=== PATIENT | female | born 1980 | race Asian ===

== ENCOUNTER 2017-02-25 12:00 | Inpatient (IN) | payer SELFPAY ==
[~2017-02-25] VITALS: Ht 167.6 cm; Wt 71.7 kg
[2017-02-25 12:11] LABS: BILIRUBIN,URINE NEGATIVE (NEGATIVE); BLOOD, URINE NEGATIVE (NEGATIVE); CLARITY/URINE HAZY (CLEAR); COLOR,URINE YELLOW (YELLOW); GLUCOSE,URINE NEGATIVE (NEGATIVE); KETONES,URINE NEGATIVE (NEGATIVE); LEUKOCYTE ESTERASE ,URINE 2+ (NEGATIVE); NITRITE, URINE NEGATIVE (NEGATIVE); PROTEIN URINE NEGATIVE (NEGATIVE); UROBILINOGEN,URINE 0.2 (0.2-1.0)
[2017-02-25 12:18] LABS: BASOPHILS % (AUTO) 0.2 % (0.0-2.0); EOSINOPHILS % (AUTO) 0.5 % (0.0-4.0); HEMATOCRIT 34.5 % (36-48); HEMOGLOBIN 11.3 g/dL (12.0-16.0); LYMPHOCYTES # (AUTO) 1.4 K/uL (1.0-5.5); LYMPHOCYTES % (AUTO) 15.8 % (20.5-51.5); MEAN CORPUSCULAR HEMOGLOBIN 29 pg (27-31); MEAN CORPUSCULAR HGB CONC 33 % (32-36); MEAN CORPUSCULAR VOLUME 87 fL (79.0-98.0); MONOCYTES # (AUTO) 0.6 K/uL (0.0-1.0); MONOCYTES % (AUTO) 6.8 % (1.7-9.3); NEUTROPHILS # (AUTO) 6.7 K/uL (1.8-7.7); NEUTROPHILS % (AUTO) 76.7 % (40.0-70.0); PLATELET COUNT (AUTO) 200 K/uL (130-430); RED BLOOD CELL COUNT(AUTO) 3.98 MIL/uL (4.2-6.2); RED CELL DISTRIBUTION WIDTH 13.4 % (9.0-15.0); WHITE BLOOD COUNT (AUTO) 8.7 K/uL (4.8-10.8)
[2017-02-25 12:21] LABS: BACTERIA,URINE MODERATE /HPF (None Seen); RBC,URINE 0-3 /HPF (0-3)
[2017-02-25 12:22] LABS: MUCUS,URINE None Seen /LPF (None Seen)
[2017-02-26] MEDS ORDERED: LR 1,000 ML IV ONE (11:27)
[2017-02-26] MEDS ORDERED: CITRIC ACID/SODIUM CITRATE 30 ML UDC PO ONE (11:30)
[2017-02-26] MEDS ORDERED: CEFAZOLIN 2 GM IVPB PREMIX 50 ML IV ONE ×2 (11:30→14:00)
[2017-02-26 12:01] LABS: BASOPHILS % (AUTO) 0.4 % (0.0-2.0); EOSINOPHILS % (AUTO) 0.4 % (0.0-4.0); HEMATOCRIT 33.2 % (36-48); HEMOGLOBIN 10.8 g/dL (12.0-16.0); LYMPHOCYTES # (AUTO) 1.5 K/uL (1.0-5.5); LYMPHOCYTES % (AUTO) 17.8 % (20.5-51.5); MEAN CORPUSCULAR HEMOGLOBIN 28 pg (27-31); MEAN CORPUSCULAR HGB CONC 33 % (32-36); MEAN CORPUSCULAR VOLUME 86 fL (79.0-98.0); MONOCYTES # (AUTO) 0.6 K/uL (0.0-1.0); MONOCYTES % (AUTO) 6.6 % (1.7-9.3); NEUTROPHILS # (AUTO) 6.3 K/uL (1.8-7.7); NEUTROPHILS % (AUTO) 74.8 % (40.0-70.0); PLATELET COUNT (AUTO) 199 K/uL (130-430); RED BLOOD CELL COUNT(AUTO) 3.86 MIL/uL (4.2-6.2); RED CELL DISTRIBUTION WIDTH 13.2 % (9.0-15.0); WHITE BLOOD COUNT (AUTO) 8.4 K/uL (4.8-10.8)
[2017-02-26] MEDS ORDERED: LR 1,000 ML IV SCH (13:52)
[2017-02-26] MEDS ORDERED: MORPHINE SULFATE 10MG/10ML PF AMP SP SCH (14:00)
[2017-02-26] MEDS ORDERED: ONDANSETRON HCL 4 MG/2 ML VIAL IVP PRN ×2 (14:00)
[2017-02-26] MEDS ORDERED: KETOROLAC TROMETHAMINE 30 MG VIAL IVP PRN ×2 (14:00)
[2017-02-26] MEDS ORDERED: HYDROmorphone 1 MG INJ. 1 MG/ML AMPUL IVP PRN ×2 (14:00)
[2017-02-26] MEDS ORDERED: MEPERIDINE HCL/PF 25 MG/ML DISP.SYRIN IVP PRN ×2 (14:00)
[2017-02-26] MEDS ORDERED: LR 1,000 ML IV.SOLN IV ONE (14:00)
[2017-02-26] MEDS ORDERED: MORPHINE SULFATE 10MG/10ML PF AMP ONE (14:00)
[2017-02-26] MEDS ORDERED: DIPHENHYDRAMINE INJ 50 MG/ML VIAL IVP PRN (14:00)
[2017-02-26] MEDS ORDERED: BUPIVACAINE /PF 0.75% 10 ML VIAL INJ ONE (14:00)
[2017-02-26] MEDS ORDERED: NALOXONE HCL 0.4 MG/ML AMP (NARCAN) IVP PRN (14:00)
[2017-02-26] MEDS ORDERED: HYDROmorphone 2 MG/ML VIAL IVP PRN ×2 (14:00)
[2017-02-26] MEDS ORDERED: NS IRRIG SOLN 1000 ML IR ONE (14:00)
[2017-02-26] MEDS ORDERED: OXYTOCIN 10 UNIT/ML VIAL ONE (14:00)
[2017-02-26] MEDS ORDERED: NALBUPHINE HCL 10 MG/ML AMP IVP PRN (14:00)
[2017-02-26] MEDS ORDERED: MIDAZOLAM HCL 5 MG/5 ML VIAL ONE (14:00)
[2017-02-26 15:05] VITALS: BP_SYST 106
[2017-02-26] MEDS ORDERED: OXYTOCIN/NORMAL SALINE 1,000 ML IV ONE ×2 (15:08→15:50)
[2017-02-26] MEDS ORDERED: OXYCODONE/ACETAMINOPHEN 5-325 TABLET PO PRN ×2 (15:15)
[2017-02-26] MEDS ORDERED: HYDROcodone/ACETAMIN 5-325 MG TAB (NORCO/ VICODIN) PO PRN (15:15)
[2017-02-26] MEDS ORDERED: MEASLES,MUMPS&RUBELLA VACC/PF 12500 UNIT/0.5 ML VIAL SUBQ PRN (15:15)
[2017-02-26] MEDS ORDERED: SIMETHICONE 80 MG TAB.CHEW PO PRN (15:15)
[2017-02-26] MEDS ORDERED: DOCUSATE SODIUM 100 MG CAPSULE PO PRN (15:15)
[2017-02-26] MEDS ORDERED: LANOLIN 7 GM OINT. TP PRN (15:15)
[2017-02-26] MEDS ORDERED: ANUSOL 1 EA SUPP.RECT (PREPARATION H) RC PRN (15:15)
[2017-02-26] MEDS: CEFAZOLIN 1 GM IVPB PREMIX 50 ML IV SCH ×2 (17:59→23:35)
[2017-02-26] MEDS ORDERED: TEMAZEPAM 15 MG CAPSULE PO PRN (21:00)
[2017-02-27 06:44] LABS: BASOPHILS % (AUTO) 0.3 % (0.0-2.0); EOSINOPHILS % (AUTO) 0.2 % (0.0-4.0); HEMATOCRIT 30.2 % (36-48); HEMOGLOBIN 9.7 g/dL (12.0-16.0); LYMPHOCYTES # (AUTO) 1.3 K/uL (1.0-5.5); LYMPHOCYTES % (AUTO) 10.5 % (20.5-51.5); MEAN CORPUSCULAR HEMOGLOBIN 27 pg (27-31); MEAN CORPUSCULAR HGB CONC 32 % (32-36); MEAN CORPUSCULAR VOLUME 85 fL (79.0-98.0); MONOCYTES # (AUTO) 0.9 K/uL (0.0-1.0); NEUTROPHILS # (AUTO) 10.3 K/uL (1.8-7.7); PLATELET COUNT (AUTO) 190 K/uL (130-430); RED BLOOD CELL COUNT(AUTO) 3.55 MIL/uL (4.2-6.2); RED CELL DISTRIBUTION WIDTH 13.3 % (9.0-15.0); WHITE BLOOD COUNT (AUTO) 12.5 K/uL (4.8-10.8)
[2017-02-27] MEDS: IBUPROFEN 600 MG TABLET PO SCH ×2 (13:00→18:00)
[2017-02-28] MEDS: IBUPROFEN 600 MG TABLET PO SCH ×4 (00:13→17:39)
[2017-03-01] MEDS: IBUPROFEN 600 MG TABLET PO SCH ×2 (01:21→06:49)
== END 2017-03-01 11:05 | disposition home or self-care (01) | DRG 766 ==
LOC: SPU 02-26 10:27
PROVIDERS: ADMIT Obstetrics & Gynecology; ATTEND Obstetrics & Gynecology
PROC: 10D00Z1 Extraction of Products of Conception, Low, Open Approach (ICD-10-PCS; principal; 2017-02-26 13:00)
DX: O34.211 Maternal care for low transverse scar from previous cesarean delivery (principal); O69.81X0 Labor and delivery complicated by cord around neck, without compression, not applicable or unspecified; Z37.0 Single live birth; Z3A.39 39 weeks gestation of pregnancy; Z88.2 Allergy status to sulfonamides; O09.523 Supervision of elderly multigravida, third trimester
CPT/HCPCS: 36415; 81000-TC; 81002-TC; 85025; 86592; 86886; 86900; 86901; 87086; 94760; J0690; J2250; J2274; J2590; J3490; J7120